=== PATIENT | male | born 1995 | race Two or more races ===

== ENCOUNTER 2024-04-12 22:54 | Inpatient (IN) | payer OTHER ==
[2024-04-12 23:30] VITALS: BMI 34.7
[2024-04-12] MEDS ORDERED: BENZOCAINE/MENTHOL (CHLORASEPTIC ) LOZENGE MM PRN (23:45)
[2024-04-12] MEDS ORDERED: guaiFENesin 600 MG TABLET.ER (FP) PO PRN (23:45)
[2024-04-12] MEDS ORDERED: LOPERAMIDE HCL 2 MG CAPSULE PO PRN (23:45)
[2024-04-12] MEDS ORDERED: DICYCLOMINE HCL 10 MG CAPSULE PO PRN (23:45)
[2024-04-12] MEDS ORDERED: BENZONATATE 200 MG CAPSULE PO PRN (23:45)
[2024-04-12] MEDS ORDERED: ONDANSETRON *ODT* 4 MG TABLET SL PRN (23:45)
[2024-04-12] MEDS ORDERED: IBUPROFEN 400 MG TABLET (FP) PO PRN (23:45)
[2024-04-12] MEDS ORDERED: BISMUTH SUBSALICYLATE 524 MG/30 ML PO PRN (23:45)
[2024-04-12] MEDS ORDERED: POLYETHYLENE GLYCOL (HEALTHYLAX) 3350 17 GM PACKET PO PRN (23:45)
[2024-04-12] MEDS ORDERED: NICOTINE POLACRILEX 2 MG GUM BUC PRN (23:45)
[2024-04-12] MEDS ORDERED: NICOTINE POLACRILEX 2 MG LOZENGE BC PRN (23:45)
[2024-04-12] MEDS ORDERED: MAGNESIUM HYDROX 2400MG/30ML ORAL SUSPENSION 30 ML CUP PO PRN (23:45)
[2024-04-12] MEDS ORDERED: MAG HYDROX/AL HYDROX/SIMETH 30 ML UNIT-DOSE CUP PO PRN (23:45)
[2024-04-12] MEDS ORDERED: P-EPHED 60MG/TRIPROLIDI 2.5MG TABLET PO PRN (23:45)
[2024-04-12] MEDS ORDERED: ACETAMINOPHEN 325 MG TABLET (FP) PO PRN (23:45)
[2024-04-12] MEDS ORDERED: NALOXONE (NARCAN) HCL 4 MG/0.1 ML SPRAY NS PRN (23:45)
[2024-04-12] MEDS ORDERED: IBUPROFEN 600 MG TABLET (FP) PO PRN (23:45)
[2024-04-12] MEDS ORDERED: methaDONE HCL 10 MG TABLET (FOR DETOX USE ONLY) PO PRN (23:48)
[2024-04-13] MEDS ORDERED: levETIRAcetam 500 MG TABLET (FP) PO ONE (00:36)
[2024-04-13] MEDS ORDERED: diazePAM 5 MG TABLET ONE (00:36)
[2024-04-13] MEDS: diazePAM 5 MG TABLET PO SCH (00:37)
[2024-04-13] MEDS: levETIRAcetam 500 MG TABLET (FP) PO SCH (00:37)
[2024-04-13] MEDS: PRENATAL VITAMINS W/ FOLIC ACID TABLET (FP) PO SCH (10:25)
[2024-04-13] MEDS: methaDONE HCL 10 MG TABLET (FOR DETOX USE ONLY) PO ONE (10:26)
[2024-04-13] MEDS: THIAMINE 100 MG TABLET PO SCH (21:58)
[2024-04-13] MEDS: MELATONIN 5 MG TABLETS PO SCH (21:58)
[2024-04-13] MEDS: cloNIDine HCL 0.1 MG TABLET PO PRN (22:00)
[2024-04-14] MEDS: diazePAM 5 MG TABLET PO SCH (05:35)
[2024-04-14] MEDS: METHOCARBAMOL 500 MG TABLET PO PRN (09:34)
[2024-04-15] MEDS: diazePAM 5 MG TABLET PO SCH (05:39)
[2024-04-15] MEDS: methaDONE HCL 10 MG TABLET (FOR DETOX USE ONLY) PO ONE (09:29)
[2024-04-15] MEDS: diazePAM 5 MG TABLET PO PRN (22:00)
[2024-04-16] MEDS: diazePAM 5 MG TABLET PO ONE (05:37)
[2024-04-17] MEDS: methaDONE HCL 10 MG TABLET (FOR DETOX USE ONLY) PO ONE (09:04)
[2024-04-17 21:15] VITALS: RESP 18
[2024-04-18 06:29] VITALS: BP 117/77; PULSE 95; TEMP 97.8
== END 2024-04-18 09:35 | disposition home or self-care (01) | DRG 773 ==
LOC: YASAS 22:54 → Y6N 23:52
PROVIDERS: ADMIT Allergy & Immunology; ATTEND Allergy & Immunology
PROC: HZ2ZZZZ Detoxification Services for Substance Abuse Treatment (ICD-10-PCS; principal; 2024-04-12)
DX: F11.23 Opioid dependence with withdrawal (principal); F10.230 Alcohol dependence with withdrawal, uncomplicated; F14.20 Cocaine dependence, uncomplicated; F13.20 Sedative, hypnotic or anxiolytic dependence, uncomplicated; F12.20 Cannabis dependence, uncomplicated; F17.210 Nicotine dependence, cigarettes, uncomplicated
CPT/HCPCS: 71045-TC-FY; 80305; 80307; 93005; 93010